=== PATIENT | female | born 2000 | race Two or more races ===

== ENCOUNTER 2022-12-20 18:55 | Observation (INO) | payer OTHER ==
[~2022-12-20] VITALS: Ht 154.9 cm; Wt 63.5 kg
[2022-12-20] MEDS ORDERED: PREN-96 PO (19:43)
[2022-12-20] MEDS ORDERED: FERR-7 PO (19:43)
[2022-12-20] MEDS ORDERED: ACETAMINOPHEN 325 MG TAB PO ONE (20:15)
[2022-12-20] MEDS ORDERED: LACTATED RINGER'S 1,000 ML IV ONE (20:15)
[2022-12-20] MEDS ORDERED: TERBUTALINE SULFATE 1 MG/ML 1ML VIAL SC ONE ×2 (20:15→20:19)
== END 2022-12-20 21:16 | disposition home or self-care (01) ==
LOC: LDRP 18:55
PROVIDERS: ADMIT Obstetrics & Gynecology; ATTEND Obstetrics & Gynecology
DX: O26.892 Other specified pregnancy related conditions, second trimester (principal); R10.9 Unspecified abdominal pain; O62.9 Abnormality of forces of labor, unspecified; O99.891 Other specified diseases and conditions complicating pregnancy; M54.9 Dorsalgia, unspecified; Z3A.21 21 weeks gestation of pregnancy
CPT/HCPCS: 59025; 94760; 96360; 96361; 96372; G0378; J3105

== ENCOUNTER 2023-03-26 12:42 | Emergency (ER) | payer MEDICAID, OTHER ==
[~2023-03-26] VITALS: Ht 154.9 cm; Wt 61.5 kg
[~2023-03-26 12:42] MED LIST: FERR-7 PO; PREN-96 PO
[2023-03-26 13:36] LABS: Basophils # (auto) 0 10 ^3/uL (0-0.2); Basophils % (auto) 0.6 % (0.0-2.0); Mean Corpuscular Hemoglobin 23.7 pg (28.0-32.0); Neutrophils # (auto) 5.4 10 ^3/uL (1.6-8.6); White Blood Cell 6.9 10^3/uL (4.4-10.8)
[2023-03-26 13:39] LABS: Eosinophils # (auto) 0.2 10 ^3/uL (0-0.8); Eosinophils % (auto) 2.4 % (0.0-7.0); Hematocrit 35.4 % (36.0-46.0); Hemoglobin 11.2 g/dL (12.2-16.2); Lymphocytes # (auto) 0.9 10 ^3/uL (0.4-5.4); Mean Corpuscular Hgb Conc. 31.8 g/dL (32.0-36.0); Mean Corpuscular Volume 74.6 fL (80.0-100.0); Monocytes # (auto) 0.4 10 ^3/uL (0-1.3); Red Blood Cells 4.74 10^6/uL (4.0-5.20)
[2023-03-26 13:42] LABS: Red Cell Distribution Width 29.4 % (11.8-14.3)
[2023-03-26 13:51] LABS: INR 0.9 (0.9-1.15); Partial Thromboplastin Time 25.2 SEC (24.5-34.5); Prothrombin Time 9.5 sec (9.3-11.8)
[2023-03-26 14:04] LABS: Alanine Aminotransferase 12 U/L (7-40); Albumin 4.2 g/dL (3.2-4.8); Alkaline Phosphatase 181 U/L (46-116); Anion Gap 10 (5-15); Aspartate Aminotransferase 17 U/L (13-40); Bilirubin, Direct < 0.1 mg/dL (<0.3); Bilirubin, Total 0.4 mg/dL (0.2-1.0); Calcium 9.7 mg/dL (8.5-10.1); Carbon Dioxide 22 mmol/L (20-30); Chloride 105 mmol/L (98-107); Glucose 87 mg/dL (74-106); Potassium 3.7 mmol/L (3.5-5.1); Sodium 137 mmol/L (136-145)
[2023-03-26 14:09] LABS: BUN/Creatinine Ratio 9.4 (10.0-20.0); Blood Urea Nitrogen < 5 mg/dL (9-23)
[2023-03-26 14:13] LABS: Lipase 43 U/L (12-53)
[2023-03-26 14:36] LABS: Hypochromia Moderate
[2023-03-26 14:39] LABS: Anisocytosis Moderate; Platelet Estimate Adequate
[2023-03-26 15:11] VITALS: TEMP 98
[2023-03-26 15:23] LABS: Urine Bacteria FEW /hpf (None Seen); Urine Blood Negative /uL (Negative); Urine Clarity HAZY (Clear); Urine Color Yellow (Yellow); Urine Mucus FEW (None Seen); Urine Protein, UAD TRACE (Negative); Urine Specific Gravity 1.019 (1.001-1.035); Urine WBC 5 /hpf (0 - 5)
[2023-03-26 15:26] VITALS: PULSE 92; RESP 16; O2SAT 98
[2023-03-26 16:18] LABS: Protein, Urine 35.5 mg/dL (0.0-11.9)
[2023-03-26 16:20] LABS: Amphetamine Screen, Urine Neg (NEGATIVE); Barbiturate Scree,Urine Neg (NEGATIVE); Benzodiazephine Screen, Urine Neg (NEGATIVE)
[2023-03-26 16:21] LABS: Cannabinoid Screen, Urine Neg (NEGATIVE); Cocaine Screen, Urine Neg (NEGATIVE); Creatinine, Urine 108.27 mg/dL (30.0-125.0); Opiate Scree,Urine Neg (NEGATIVE); Phencyclidine Screen, Urine Neg (NEGATIVE); Urine Protein/Creatinine Ratio 0.33
[2023-03-26 19:50] VITALS: PULSE 96; RESP 14; O2SAT 98
[2023-03-27 02:13] VITALS: BP 109/67; PULSE 96; RESP 18; O2SAT 97
== END 2023-03-27 03:50 | disposition left against medical advice (07) ==
LOC: ER 12:42
DX: O26.893 Other specified pregnancy related conditions, third trimester (principal); H53.8 Other visual disturbances; Z3A.34 34 weeks gestation of pregnancy
CPT/HCPCS: 36415; 70450; 76805; 80053; 80307; 81001; 82248; 82570; 82962; 83690; 84156; 84550; 85025; 85610; 85730